=== PATIENT | female | born 1990 | race Caucasian/White ===

== ENCOUNTER 2018-04-05 10:34 | Emergency (ER) | payer MEDICAID, OTHER ==
[2018-04-05 10:48] VITALS: BP 120/79
--- NOTE | 2018-04-05 11:00 | UC ---
Eye Complaint HPI - HPI Summary HPI Summary: 28-year-old woman comes in to clinic today with a chief complaint of left I redness irritation and drainage. This started yesterday. His had upper respiratory tract infection symptoms with runny nose for 2 days. Denies any foreign body in the eye. The left eye is generally itchy there is no specific pain or vision changes. She does have contacts which she's taken out and has kept out. When she woke up she had a lot of yellow crusting which she improved by cleaning the EYE. - History of Current Complaint Chief Complaint: UCEye Stated Complaint: L EYE COMPLAINT Time Seen by Provider: 04/05/18 10:52 Hx Last Menstrual Period: 02/25/18 Pain Intensity: 0 - Allergies/Home Medications Allergies/Adverse Reactions: Allergies Allergy/AdvReac Type Severity Reaction Status Date / Time Penicillins Allergy Hives Verified 04/05/18 10:49 PMH/Surg Hx/FS Hx/Imm Hx Previously Healthy: Yes - Surgical History Surgical History: None - Family History Known Family History: Positive: Non-Contributory - Social History Alcohol Use: None Substance Use Type: None Smoking Status (MU): Never Smoked Tobacco Have You Smoked in the Last Year: No - Immunization History Most Recent Influenza Vaccination: 02/08/15 Most Recent Tetanus Shot: 04/26/15 Most Recent Pneumonia Vaccination: never Review of Systems All Other Systems Reviewed And Are Negative: Yes Constitutional: Positive: Negative Skin: Positive: Negative Eyes: Positive: Drainage, Eye Redness. Negative: Photophobia ENT: Positive: Nasal Discharge Respiratory: Positive: Negative Cardiovascular: Positive: Negative Gastrointestinal: Positive: Negative Motor: Positive: Negative Neurovascular: Positive: Negative Musculoskeletal: Positive: Negative Neurological: Positive: Negative Psychological: Positive: Negative Is Patient Immunocompromised?: No Physical Exam Triage Information Reviewed: Yes Appearance: Well-Appearing, No Pain Distress, Well-Nourished Vital Signs: Initial Vital Signs Temp 98.6 F 04/05/18 10:45 Pulse 77 04/05/18 10:45 Resp 17 04/05/18 10:45 BP 120/79 04/05/18 10:45 Pulse Ox 100 04/05/18 10:45 Vital Signs Reviewed: Yes Eyes: Positive: Conjunctiva Inflamed - LEFT, Discharge - LEFT CLEAR WITH SOME YELLOW CRUSTING ON EYELIDS. NO EYELID SWELLING/STYE SEEN. ENT: Positive: Pharynx normal, Nasal drainage, TMs normal Neck exam: Normal Neck: Positive: Supple Respiratory: Positive: Lungs clear, Normal breath sounds, No respiratory distress Cardiovascular Exam: Normal Cardiovascular: Positive: RRR Musculoskeletal Exam: Normal Musculoskeletal: Positive: Strength Intact, ROM Intact Neurological Exam: Normal Neurological: Positive: Alert, Muscle Tone Normal Psychological Exam: Normal Psychological: Positive: Age Appropriate Behavior Skin Exam: Normal Eye Complaint Course/Dx - Differential Dx/Diagnosis Provider Diagnosis: Conjunctivitis, left eye Discharge - Sign-Out/Discharge Documenting (check all that apply): Patient Departure All imaging exams completed and their final reports reviewed: No Studies - Discharge Plan Condition: Stable Disposition: HOME Prescriptions: Tobramycin 0.3% OPHTH.YIFAN* 1 drop LEFT EYE Q4H #1 btl Patient Education Materials: Conjunctivitis (ED) Referrals: [facility] [Outside] Issa Salinas MD [Medical Doctor] - Additional Instructions: FOLLOW UP WITH YOUR PRIMARY CARE DOCTOR OR OPHTHALMOLOGY IF NOT COMPLETELY IMPROVED. GET RECHECKED FOR ANY WORSENING OF YOUR CONDITION OR QUESTIONS OR CONCERNS. - Billing Disposition and Condition Condition: STABLE Disposition: Home
== END 2018-04-05 11:00 | disposition home or self-care (01) ==
LOC: UCEAST 10:34
DX: H10.32 Unspecified acute conjunctivitis, left eye (principal); Z88.0 Allergy status to penicillin
CPT/HCPCS: 99212; G0463

== ENCOUNTER 2018-10-15 12:35 | Emergency (ER) | payer OTHER ==
[2018-10-15 12:56] VITALS: BP 122/79
--- NOTE | 2018-10-15 13:10 | UC ---
Lower Extremity/Ankle HPI - HPI Summary HPI Summary: Yesterday twisted R ankle at work and is concerned about pain. SHe canwalk on it but not without pain. denies bruising or tingling/numbness. - History of Current Complaint Chief Complaint: UCLowerExtremity Stated Complaint: R ANKLE INJURY Time Seen by Provider: 10/15/18 12:43 Hx Obtained From: Patient Hx Last Menstrual Period: explanon ?: No - on bc Pain Intensity: 4 Pain Scale Used: 0-10 Numeric Aggravating Factor(s): Standing, Ambulation Alleviating Factor(s): Nothing - Allergies/Home Medications Allergies/Adverse Reactions: Allergies Allergy/AdvReac Type Severity Reaction Status Date / Time Penicillins Allergy Hives Verified 10/15/18 12:56 Home Medications: Home Medications NK [No Home Medications Reported] 10/15/18 [History Confirmed 10/15/18] PMH/Surg Hx/FS Hx/Imm Hx - Additional Past Medical History Additional PMH: no chronic issues Previously Healthy: Yes - Surgical History Surgical History: None - Family History Known Family History: Positive: Non-Contributory - Social History Alcohol Use: None Substance Use Type: None Smoking Status (MU): Never Smoked Tobacco Have You Smoked in the Last Year: No - Immunization History Most Recent Influenza Vaccination: 02/08/15 Most Recent Tetanus Shot: 04/26/15 Most Recent Pneumonia Vaccination: never Review of Systems All Other Systems Reviewed And Are Negative: Yes Constitutional: Negative: Fever Skin: Negative: Bruising Motor: Negative: Decreased ROM, Weakness Musculoskeletal: Positive: Arthralgia - R ankle., Edema - r ankle Neurological: Negative: Weakness, Paresthesia, Numbness Physical Exam Triage Information Reviewed: Yes Appearance: Well-Appearing Vital Signs: Initial Vital Signs Temp 98 F 10/15/18 12:53 Pulse 100 10/15/18 12:53 Resp 20 10/15/18 12:53 BP 122/79 10/15/18 12:53 Pulse Ox 99 10/15/18 12:53 Vital Signs Reviewed: Yes Cardiovascular: Positive: Brisk Capillary Refill - at R toes Musculoskeletal Exam: Other - R knee unremarkable. Musculoskeletal: Positive: Strength Intact - R ankle., ROM Intact - R ankle., Edema @ - minimal at R ankle. Neurological: Positive: Alert, Muscle Tone Normal - LE Skin: Negative: Other - no bruising noted at R ankle Diagnostics - Radiology No standard instances Radiology Interpretation Completed By: Radiologist Summary of Radiographic Findings: IMPRESSION: SOFT TISSUE SWELLING. NO ACUTE OSSEOUS INJURY. IF SYMPTOMS PERSIST, RECOMMEND REPEAT. IMAGING. Lower Extremity Course/Dx - Course Course Of Treatment: Twisted R ankle at work yesterday and she was concerned w/ pain. on exam aside from minimal pain and swelling, no concern for fx. she requested imaging and did not show significant fx. Vitals good. plan is to not work for short period and ice, w/ nsaids for pain. young wrap to help w;/ support. - Differential Dx/Diagnosis Differential Diagnosis/HQI/PQRI: Fracture (Closed), Sprain, Strain, Tendonitis, Tenosynovitis Provider Diagnosis: Right ankle sprain Discharge - Sign-Out/Discharge Documenting (check all that apply): Patient Departure All imaging exams completed and their final reports reviewed: Yes - Discharge Plan Condition: Good Disposition: HOME Patient Education Materials: Ankle Sprain (ED) Forms: *Work Release Referrals: [facility] [Outside] Additional Instructions: If worsening please follow up with your pcp - Billing Disposition and Condition Condition: GOOD Disposition: Home
== END 2018-10-15 14:35 | disposition home or self-care (01) ==
LOC: UCEAST 12:35
DX: S93.401A Sprain of unspecified ligament of right ankle, initial encounter (principal); X58.XXXA Exposure to other specified factors, initial encounter; Y92.9 Unspecified place or not applicable; Z88.0 Allergy status to penicillin
CPT/HCPCS: 99212; G0463

== ENCOUNTER 2020-05-20 11:41 | Inpatient (IN) ==
[2020-05-20] MEDS ORDERED: Buffered Lidocaine 1% SYRIN 1 ml INTRADERM ONE (13:04)
[2020-05-20] MEDS ORDERED: Lactated Ringers 1000 ml BAG 1,000 ML IV ONE ×2 (13:04→20:54)
[2020-05-20] MEDS ORDERED: Lactated Ringers 1000 ml BAG 1,000 ML IV SCH ×2 (14:00→21:00)
[2020-05-20] MEDS ORDERED: Oxytocin in LR 20 UNITS/1,000 ML BAG IVPB SCH (14:00)
[2020-05-20 14:20] LABS: ABS Eosinophils 0.1 10^3/ul (0-0.6); ABS Monocytes 0.7 10^3/ul (0-0.8); ABS Neutrophils 8.6 10^3/ul (1.5-7.7); Eosinophil % 0.8 %; Hematocrit 33 % (35-47); Hemoglobin 10.6 g/dL (12.0-16.0); Lymphocyte % 17.7 %; Mean Corpuscular HGB Conc 32 g/dL (31-36); Mean Corpuscular Hemoglobin 23 pg (27-31); Mean Corpuscular Volume 72 fL (80-97); Mean Platelet Volume 8.3 fL (7.4-10.4); Platelet Count 311 10^3/uL (150-450); Red Blood Count 4.52 10^6 /uL (3.70-4.87); Red Cell Distribution Width 15 % (10-15); White Blood Count 11.5 10^3/uL (3.5-10.8)
[2020-05-20 15:18] LABS: Urine Benzodiazepine Screen None Detected (None Detect); Urine Cannabinoids Screen None Detected (None Detect); Urine Opiates Screen None Detected (None Detect)
[2020-05-20] MEDS ORDERED: OBEPIDURAL 250 ML EPIDURAL ONE (19:18)
[2020-05-20] MEDS ORDERED: Sodium Citrate/Citric Acid LIQ 15 ML UDC PO PRN (20:54)
[2020-05-20] MEDS ORDERED: Lactated Ringers 1000 ml BAG 500 ML IV PRN ×2 (20:54)
[2020-05-20] MEDS ORDERED: Phenylephrine 40 mcg/mL 10mL (400mcg) SYRINGE IV PUSH PRN ×2 (20:54)
[2020-05-20] MEDS ORDERED: OBEPIDURAL 250 ML EPIDURAL SCH (21:00)
[2020-05-21] MEDS ORDERED: fentaNYL 100 mcg/2 ml 50 MCG/ML VIAL ONE (04:06)
[2020-05-21] MEDS ORDERED: Glycerin ADULT 2.4 gm SUPP PR PRN (04:30)
[2020-05-21] MEDS ORDERED: Dibucaine 1% OINT 28.35 GM TUBE PR PRN (04:30)
[2020-05-21] MEDS ORDERED: Witch Hazel PAD JAR TOPICAL PRN (04:30)
[2020-05-21] MEDS ORDERED: Lactated Ringers 1000 ml BAG 1,000 ML IV SCH (05:00)
[2020-05-21] MEDS ORDERED: Lidocaine 1% VIAL 10 MG/ML VIAL ONE (09:14)
[2020-05-22 06:18] LABS: ABS Eosinophils 0.2 10^3/ul (0-0.6); ABS Lymphocytes 2.7 10^3/ul (1.0-4.8); ABS Monocytes 0.7 10^3/ul (0-0.8); ABS Neutrophils 7.9 10^3/ul (1.5-7.7); Eosinophil % 1.7 %; Hematocrit 22 % (35-47); Mean Corpuscular HGB Conc 32 g/dL (31-36); Mean Corpuscular Hemoglobin 23 pg (27-31); Mean Corpuscular Volume 74 fL (80-97); Platelet Count 216 10^3/uL (150-450); Red Blood Count 2.98 10^6 /uL (3.70-4.87); Red Cell Distribution Width 15 % (10-15); White Blood Count 11.5 10^3/uL (3.5-10.8)
[2020-05-22 09:10] VITALS: BP 129/78
== END 2020-05-22 14:15 | disposition home or self-care (01) ==
LOC: MCHOBOUT 11:41 → MCHOB 12:47
PROVIDERS: ADMIT Obstetrics & Gynecology; ATTEND Obstetrics & Gynecology